=== PATIENT | male | born 1935 | race Caucasian/White ===

== ENCOUNTER 2022-11-12 12:22 | Outpatient (CLI) | payer MEDICARE, OTHER, SELFPAY | END 2022-11-12 12:23 | disposition home or self-care (01) | LOC: AMB 11-14 00:56 | PROVIDERS: Visit Provider Emergency Medicine Emergency Medical Services | DX: R53.1 Weakness (principal); R52 Pain, unspecified; R53.81 Other malaise | CPT/HCPCS: A0425; A0427 ==